=== PATIENT | female | born 1960 | race Caucasian/White ===

== ENCOUNTER 2025-07-14 08:39 | Day surgery (SDC) | payer BC, SELFPAY ==
[2025-07-03 10:02] VITALS: BMI 35.7
[2025-07-03 10:26] LABS: Hematocrit 38.9 % (37.0-47.0); Hemoglobin 13.7 g/dL (12.0-16.0); Mean Corp Hgb Conc. 35.2 g/dL (33.0-37.0); Mean Corpuscular Volume 88.8 fL (81.0-99.0); Nucleated Red Blood Cells % 0 %; Platelet Count 299 10^3/uL (130-400); Red Cell Dist. Width 11.6 % (11.5-14.5)
[2025-07-03 10:51] LABS: ALT (SGPT) 31 U/L (0-35); AST (SGOT) 29 U/L (14-36); Albumin 4.7 g/dl (3.5-5.0); Alkaline Phosphatase 75 U/L (38-126); Blood Urea Nitrogen 16 mg/dl (7-17); Calcium 9.9 mg/dl (8.4-10.2); Carbon Dioxide 26 mmol/L (22-30); Chloride 107 mmol/L (98-107); Estimated Creatinine Clearance 81 ml/min; Glucose 111 mg/dl (70-99); Potassium 4.5 mmol/L (3.5-5.1); Sodium 139 mmol/L (135-145); Total Protein 7.8 g/dl (6.3-8.2); eGFR > 60.00
[2025-07-14] VITALS (19 sets, daily range): BP systolic 102–192; BP diastolic 66–110; BMI 36.4
[2025-07-14 12:26] LABS: ACT-LR - POC 268 Seconds (116-155)
--- NOTE | 2025-07-14 15:56 | ITS.CL.PN ---
Game Warden - Procedure Note
Procedure
Procedure Note:
CARDIAC CATHETERIZATION REPORT
Date of Procedure: 07/14/2025
Referring: Dr. Manolo Morton MD
Indication: Atypical angina, CT coronary angiogram with severe single-vessel coronary artery disease
PROCEDURE(S)
1. left heart catheterization
2. coronary angiography
3. iFR LAD
ACCESS: 6F right radial artery (closure: radial band)
CATHETERS
1. 6F JR4
2. 6F JL3.5
3. 6F EBU3.5 guide
MODERATE SEDATION: 35 minutes of moderate sedation was utilized. An independent medical clerical assistant was present to assist with and help manage the patient's level of consciousness and physiologic status.
HEMODYNAMIC DATA
LV 128/12 (EDP 18) mmHg
AO 126/67 (mean 90) mmHg
CORONARY ANGIOGRAPHY
Dominance: Right
LM: Large, normal
LAD: Large vessel giving rise to a small D1 and moderate caliber D2 before wrapping around the apex. There is a focal 50% stenosis in the proximal LAD just before D1. This was further interrogated by iFR.
LCx: Large vessel giving rise to a large OM1/ramus, small branching OM2, and large LPL branch. There is mild nonobstructive disease.
RCA: Large vessel giving rise to a large RPDA and moderate caliber RPL branch. There is mild coronary artery disease.
iFR of LAD
Heparin was given to achieve ACT greater than 250. The left main was engaged with an EBU 3.5 guide catheter. An Omni wire was flushed and zeroed outside the body and then advanced to the left main. The wire introducer was removed and the catheter
flushed with saline, after which pressure of the wire and guide were normalized. The wire was advanced to the mid LAD and iFR recorded at 0.96. On return to the left main, iFR appropriately normalized to ~1.0, confirming lack of wire drift.
RADIATION: dose 307 mGy; DAP 16.7 Gy*cm2; fluoroscopy time 6.7 min
CONCLUSIONS
1. Nonobstructive coronary artery disease as described in right dominant system
2. Moderately elevated left intraocular filling pressure and no aortic stenosis
RECOMMENDATIONS
1. Secondary prevention of coronary artery disease
2. Workup for etiology of chronic dyspnea on exertion not related to epicardial CAD
Copy to: Dr. Manolo Morton MD (basin tender); Dr. Dayna Zapata MD (PCP)
Signed: Saurav Denis MD, PhD
== END 2025-07-14 17:15 | disposition home or self-care (01) ==
LOC: CATH 08:39
PROVIDERS: ATTENDING PHYSICIAN Student in an Organized Health Care Education/Training Program; FAMILY PHYSICIAN Family Medicine; OTHER PHYSICIAN Internal Medicine Cardiovascular Disease
DX: I25.118 Atherosclerotic heart disease of native coronary artery with other forms of angina pectoris (principal)
CPT/HCPCS: 93799; 36415; 80053; 85025; 85347; 93005; 93458; 99152; 99153; C1769; C1894; Q9967

== ENCOUNTER 2025-10-04 14:20 | Emergency (ER) | payer BC, SELFPAY ==
[2025-10-04 14:22] VITALS: BP 171/90
[2025-10-04 17:02] VITALS: BMI 38.4
[2025-10-04] MEDS: LIDOCAINE 4% PATCH 1 PATCH TOPICAL (20:24)
[2025-10-04 20:44] LABS: Urine Character Clear (Clear)
[2025-10-04 20:52] VITALS: BP 155/89
[2025-10-04] MEDS: ULTRAM 50 MG PO (21:47)
--- NOTE | 2025-10-04 22:21 | ED.GENMED ---
History of Present Illness
General
Chief Complaint: Musculo-Skeletal Complaint
Source: patient
Exam Limitations: none
Time Seen by Provider: 10/04/25 19:21
Nursing documentation reviewed up to this point in time: agreed with
History of Present Illness
History of Present Illness:
Patient is a 65-year-old female who presents to the emergency department for evaluation of left hip pain. Patient states she has had ongoing symptoms for the past 2 weeks however they have been progressively worsening. She describes pain in her
left lower back, left hip, and left groin, worse with weightbearing. She has little to no pain at rest. She denies any numbness/tingling or weakness in lower extremities. She denies any loss of bowel/bladder control. No history of cancer or
recent fevers. No known falls or trauma.
Patient has been seen by urgent care and orthopedics where she apparently had negative x-ray imaging of her hip and lumbar spine. She is scheduled for MRI however is unable to do so until the end of October.
She is currently taking Tylenol and meloxicam daily as prescribed by her primary care provider.
Given progressive worsening in pain now with ambulatory dysfunction she presents to the emergency department today for further evaluation.
Review of Systems
Review of Systems
Allergies reviewed?: Yes
All Other Systems: ROS reviewed and negative except as documented in HPI and ROS
Phy Exam
Physical Exam
Physical Exam:
Vitals: Hypertensive, otherwise vital signs stable. Afebrile
General: Patient is laying in bed comfortably, in no distress
Skin: Warm and dry, no rashes or lesions
Head: Normocephalic, atraumatic
Neck: Normal ROM, no cervical spine tenderness, no meningismus
Cardiac: Regular rate and rhythm, no murmurs.
Pulm: Normal respiratory effort. Lungs clear bilaterally
Abdomen: Soft and nontender.
Back: No midline spinal tenderness. No reproducible tenderness to left SI joint. No rash
Extremities: No obvious deformity of left lower extremity. Mild reproducible tenderness in left inguinal region. Pain with flexion of left hip, no pain with internal/external rotation. Palpable distal pulses in bilateral lower extremities with
normal sensation. Strength 5/5 in extremities
Neuro: AAOx3. CN II-XII grossly intact. No focal deficits.
Psychiatric: Normal affect.
Course
Orders/Labs/Results
Orders:
Orders
10/04/25 20:02
CT Pelvis W/o Iv Contrast Urgent
Comment:
Reason For Exam: Severe left hip/ lower back pain unable to walk
Lidocaine [Lidocaine 4% Patch] 1 patch TOPICAL NOW STA
Apply Lidocaine patch(s) to:: left lower back
10/04/25 20:33
Urine Microscopic Reflex Cult Urgent
Urine Reflex Culture from [facility] [Urinalysis Reflex To Culture] Urgent
Date Specimen was Collected: 10/04/25
Time Specimen was Collected: 20:31
Urine Culture Urgent
YEMI Source: U
Specimen Description:
Date Specimen was Collected: 10/04/25
Time Specimen was Collected: 20:31
10/04/25 21:36
Tramadol HCl [Ultram] 50 mg PO NOW STA
10/04/25 22:28
Walker [Treatment- Walker] ONCE
Abnormal Lab Results
10/04/25
20:33
Ur Occult Blood Reflex 1+ A
(Negative)
Leukocyte Esterase Rfl 1+ A
(Negative)
Urine RBC 7-10 A /HPF
(0-2)
Urine Bacteria (Reflex) Moderate A
(Negative)
Urine Albumin (Reflex) 1+ A
(Neg - Trace)
Vital Signs
Initial and Last Documented VS:
Initial Vital Signs
Temp Pulse Resp BP Pulse Ox
99.3 F 78 16 171/90 96
10/04/25 14:22 10/04/25 14:22 10/04/25 14:22 10/04/25 14:22 12/28/25 14:22
Last Documented Vital Signs
Temp Pulse Resp BP Pulse Ox
99.3 F 72 18 155/89 95
10/04/25 14:22 10/04/25 22:39 10/04/25 22:39 10/04/25 20:52 10/04/25 22:39
MDM/Problems Addressed
Differential Diagnosis Includes:
Not limited to: Radicular pain, muscle strain/spasm, piriformis syndrome, osteoarthritis, etc.
MDM/Problems Addressed:
65-year-old female with progressively worsening left hip/groin pain radiating to lower back now with difficulty ambulating. No associated fever, neurologic symptoms including bowel/bladder incontinence, urinary discomfort, or abdominal pain. No
history of recent trauma. Patient has apparently had negative x-ray imaging with orthopedics scheduled for MRI at end of October. Patient hypertensive with otherwise stable vital signs. Physical exam as above
Clinical picture seems most consistent with musculoskeletal back pain possibly neuropathic or radicular in nature. Do not suspect infectious process. No findings concerning for neurologic emergency or cauda equina. Do not suspect vascular
catastrophe.
Discussed with patient no indication for emergent MRI in emergency department. However, given difficulty weight bearing decision was made to obtain CT pelvis.
Update:CT reveals a nondisplaced fracture of left inferior pubic ramus. Pain likely multifactorial from pelvic fracture and sacroilitis. Offered patient admission for pain management/ PT consult however she much prefers discharge home. She was able
to ambulate in ED with walker. Will discharge home with walker, pain control, and ortho f/u. Strict return precautions discussed.
Chronic conditions affecting care:
N/A
Acute Exacerbation and/or Progression of Chronic Illness:
N/A
*Radiology
Radiology exam reviewed: radiology read reviewed
*Pulse Oximetry
SaO2: 94
Oxygen Mode of Delivery: Room air
Patient hypoxic: no
*EKG
Interpreted by ED Provider?: NA
*Flatbed Truck Driver Interpretation
Rate: Flatbed Truck Driver- N/A
*Critical Care Note
Total Time (30-74mins, 75-104mins- exclusive of procedures): Not Applicable
ED Attending Note
-
Portions of this chart may have been created with voice recognition software.� Occasional wrong word or��sound alike� substitutions may have occurred due to the inherent limitations of voice recognition software.
Discharge Plan
Departure
Patient Disposition: Home (Routine Discharge)
Date of Disposition: 10/04/25
Time of Disposition: 22:28
Patient with high blood pressure during this ER visit?: Yes
Condition: Good
Discharge Problem:
Fracture of left inferior pubic ramus, Left hip pain
Instructions: Pelvic fracture, BLOOD PRESSURE
Prescriptions:
New
tramadol 50 mg tablet
50 mg PO Q6H PRN (Reason: Pain) Qty: 10 0RF
No Action
acetaminophen 500 mg Tablet
1,000 mg PO Q6H PRN (Reason: pain)
meloxicam 7.5 mg Tablet
7.5 mg PO DAILY PRN (Reason: pain)
ibuprofen 200 mg Tablet
200 mg PO Q6H PRN (Reason: pain)
cholecalciferol (vitamin D3) [Vitamin D3] 25 mcg (1,000 unit) Capsule
25 mcg PO DAILY
rosuvastatin 5 mg Tablet
5 mg PO HS
mecobalamin (vitamin B12) [B12 Active] 1,000 mcg Tablet,Chewable
1,000 mcg PO DAILY
Rinvoq 15 mg Tablet Extended Release 24 Hr
15 mg PO HS
aspirin 81 mg Tablet
81 mg PO DAILY
Referrals:
Dayna Zapata MD [Family Provider, Family Practice]
Jon Ramirez MD [Active, Orthopedics]
Activity Restrictions/Additional Instructions:
RETURN TO THE EMERGENCY DEPARTMENT WITH ANY INTRACTABLE PAIN, INABILITY TO AMBULATE, NUMBNESS/TINGLING OR WEAKNESS IN LOWER LEG, LOSS OF BOWEL/BLADDER CONTROL, FEVERS, OR ANY OTHER CONCERNS
- As discussed the CT of your pelvis did show a nondisplaced fracture of your left inferior pubic ramus which is likely contributing to your pain.
- Please continue to take Tylenol and meloxicam at home as prescribed by your primary care physician. I did send a prescription for tramadol which you can take for intractable pain. This may cause drowsiness and you should not take prior to driving
- You can continue to weight-bear as tolerated and use walker as needed for ambulation. Please follow-up with orthopedics for further evaluation/management and to ensure your symptoms resolved
- Your urinalysis which was sent in the emergency department did show red blood cells in your urine. Please have this repeated with your primary care to ensure this resolves
Monitor your symptoms closely and return to the emergency department with any acute worsening/new symptoms or any other concerns
Interventions
Interventions:
*General Assessment Last Done: 10/04/25 14:22
*Neglect/Abuse Screening Last Done: 10/04/25 14:22
*ED COVID-19 Vaccine History Last Done: 10/04/25 17:02
*ED Influenza Vaccine History Last Done: 10/04/25 17:02
[facility] Risk Assessment Tool Last Done: 10/04/25 17:04
*Risk Screen - Suicide (C-SSRS) Last Done: 10/04/25 14:22
*Nursing Disposition Last Done: 10/04/25 22:39
ED-Musculoskeletal Assessment Last Done: 10/04/25 17:09
Discharge Date and Time
Discharge Date/Time: 10/04/25 22:40
Print Language: GEORGIAN
== END 2025-10-04 22:40 | disposition home or self-care (01) ==
LOC: EMR 14:20
PROVIDERS: Physician Assistant; EMERGENCY PHYSICIAN Emergency Medicine; FAMILY PHYSICIAN Family Medicine
DX: S32.592A Other specified fracture of left pubis, initial encounter for closed fracture (principal); X58.XXXA Exposure to other specified factors, initial encounter; R03.0 Elevated blood-pressure reading, without diagnosis of hypertension
CPT/HCPCS: 99284; 72192; 81003; 81015; 87086